=== PATIENT | female | born 1965 | race American Indian/Alaskan Native ===

== ENCOUNTER 2017-02-01 10:29 | Day surgery (SDC) | payer MEDICAID ==
[2017-02-01] MEDS ORDERED: NACL 0.9% 1000 ML 1,000 ML IV SCH (12:00)
[2017-02-01] MEDS ORDERED: XYLOCAINE MPF 2% ONE (12:00)
--- NOTE | 2017-02-01 12:09 | Anesthesia Day of Surgery ---
Anesthesia Day of Surgery - Day of Surgery Patient Examined: Yes Patient H&P Reviewed: Yes Patient is NPO: Yes
--- NOTE | 2017-02-01 12:12 | Anesthesia Consultation ---
Anesthesia Consult and Med Hx Date of service: 02/01/17 - Airway Anesthetic Teeth Evaluation: Poor ROM Head & Neck: Adequate Mental/Hyoid Distance: Adequate Mallampati Class: Class III Intubation Access Assessment: Possibly Difficult - Pulmonary Exam CTA: Yes - Cardiac Exam Cardiac Exam: RRR - Pre-Operative Health Status ASA Pre-Surgery Classification: ASA3 Proposed Anesthetic Plan: MAC - Pulmonary Hx Smoking: Yes (1-2 cigarrete per day x30 years) Hx Asthma: Yes (inhaler everyday, used this AM) - Cardiovascular System Hx Hypertension: No - Central Nervous System CVA: No (hx of brain aneurysm surgery in 2002) - Endocrine Hx Renal Disease: No Hx Cirrhosis: Yes (PT STATES WAS TOLD AT [facility] last month) Hx Non-Insulin Dependent Diabetes: No - Other Systems Hx Alcohol Use: Yes (stated quit, but used to 3 cans /day) - Additional Comments Anesthesia Medical History Comments: NAC
[2017-02-01] MEDS ORDERED: DIPRIVAN 10 MG/ML IV ONE ×2 (13:23)
--- NOTE | 2017-02-01 14:11 | Operative Report ---
Operative Report Operative Report: Date of procedure: 02/01/2017 Procedure: Colonoscopy to the sigmoid colon. Attending physician: Darin Salazar MD Hydrology Teacher: Darin Salazar MD Indication: Patient is a 51-year-old female who presents for screening colonoscopy. A colonoscopy service to evaluate patient for colorectal cancer screening.. Consent: Informed consent was obtained after advising the patient and family regarding nature of this procedure, its indications, potential benefits as well as possible complications including but not limited to bleeding perforation and adverse reaction to medication, infection as well as other cardiopulmonary complications. An informed written and verbal consent was then obtained after due opportunity was provided for questions and answers. Monitoring: Patient was monitored continuously with pulse oximetry and electrocardiographic recordings as well as blood pressure recordings. Vital signs remained stable throughout this procedure with no untoward events. Preoperative assessment: Patient was assessed immediately prior to this procedure for capacity to tolerate monitored anesthesia care and moderate sedation as well as general anesthesia. Patient's ASA classification is 2, Mallampati class is 2, Hyomental distance is 3. Instrument: Fujinon videocolonoscope Medications: Propofol given intravenously in divided doses. For details please refer to anesthesia records. Description of procedure: Patient was placed in the left lateral decubitus position after achieving sedation, a digital rectal examination was performed following which the colonoscope was introduced into the anal verge and advanced to the proximal sigmoid colon. The area appeared friable and tortuous. There appeared to be a mass lesion that is partially obstructing. There was a concern also for possible near colon perforation. The procedure was terminated. A CT scan is being obtained urgently to evaluate patient further. Findings: The colon was moderately tortuous. There appeared to be a possible colon mass in the sigmoid colon. Around this area also, there appeered to be a probable near perforation of the sigmoid colon(nontransmural). On the retroflex view at the anal verge, patient had internal hemorrhoids. Impression: Possible sigmoid colon mass. Suspicion of a nearly perforated colon in the sigmoid colon. Internal hemorrhoids. Plan: Stat CT scan of the abdomen and pelvis to assess patient. Additional measures will be taken depending on CT scan findings.
--- NOTE | 2017-02-01 14:12 | Discharge Summary ---
Short Stay Discharge Plan Activity: advance as tolerated Other Discharge Orders: CT abdomen pelvis w con Location: Determined By Patient
[2017-02-01 17:38] VITALS: BP 146/78
--- NOTE | 2017-02-01 17:55 | Cat Scan Report ---
FINAL REPORT EXAM: CT ABDOMEN PELVIS WO CON HISTORY: ? partial obstructing colon mass/colon perforation TECHNIQUE: CT of the abdomen and pelvis with oral contrast. No intravenous contrast administered. PRIORS: None. FINDINGS: No acute abnormality seen in the visualized portion of the lung bases. The liver is enlarged. There is a nodular contour. There is heterogeneity of attenuation liver parenchyma. Underlying mass lesions cannot be excluded. Spleen is normal in size and attenuation Kidneys demonstrate no evidence for hydronephrosis or nephrolithiasis. The adrenal glands are unremarkable. Abdominal aorta is normal in caliber There is a lytic bony lesion inferior left sacrum involving the adjacent iliac wing and extending through the sacroiliac joint with multiple calcifications present and soft tissue mass. Subtle sclerotic bony densities are identified. There is a small sclerotic focus within right ilium at the posterior acetabulum. Several small additional bilateral pelvic foci are seen within the ileum. Sclerotic densities noted vertebral body of T12 and there is a mixed attenuation lesion within T10 Noted are marked degenerative disc changes L4-5 and L5-S1 IMPRESSION: Enlarged liver. Nodular contour could reflect underlying cirrhosis. Some heterogeneity of attenuation seen on nonenhanced images. Underlying liver lesions or metastasis not excluded. Followup contrast CT if possible for this patient suggested. PET-CT could be performed for further evaluation Large lytic bony lesion left sacrum and adjacent ilium with soft tissue mass highly suspicious for neoplasm. Multiple small sclerotic bony foci noted within the sacrum and spine suspicious for metastasis Thickened appearance of the wall of the distal sigmoid and rectum. Could reflect colitis versus underlying mass low-attenuation 2.5 centimeter focus within the left adnexa possibly cystic. Could be further evaluated with ultrasound
== END 2017-02-01 10:30 | disposition home or self-care (01) ==
LOC: GIO 10:29
PROVIDERS: ATTEND Internal Medicine Gastroenterology
DX: Z12.11 Encounter for screening for malignant neoplasm of colon (principal); K63.89 Other specified diseases of intestine; K64.8 Other hemorrhoids; J45.909 Unspecified asthma, uncomplicated; I10 Essential (primary) hypertension; F17.210 Nicotine dependence, cigarettes, uncomplicated; F10.21 Alcohol dependence, in remission; Z79.899 Other long term (current) drug therapy; Z72.89 Other problems related to lifestyle; Z80.0 Family history of malignant neoplasm of digestive organs
CPT/HCPCS: 45378; 74176; J2704; J7030

== ENCOUNTER 2017-08-05 09:28 | Outpatient (CLI) | payer MEDICAID ==
--- NOTE | 2017-08-06 14:05 | PET Report ---
PET/CT:08/05/17 09:28:00 CLINICAL: Adenocarcinoma. RADIOPHARMACEUTICAL: 14.94mCi F18-FDG. COMPARISON: CT abdomen and pelvis without contrast PET/CT TECHNIQUE- Following intravenous injection of F-18 FDG and an approximately 60 minute uptake period, CT and PET images from the mid skull to the upper thighs were acquired with the patient in the fasted state. No contrast was administered. The CT protocol used for this PET CT study is designed for attenuation correction and anatomic localization of PET abnormalities. This personal protection specialist CT is not desired to produce and cannot replace, [id number] diagnostic CT scans with specific imaging protocols for different the body parts and indications. Plasma glucose at the time of this test: 93g/dl. The standardized uptake values (SUV) are normalized to patient body weight and indicate the highest activity concentration (SUV max) in a given disease site. FINDINGS: Brain--Physiologic FDG uptake in the visualized regions of the brain. Neck--Physiologic FDG uptake in mucosal structures. Chest--Physiologic FDG uptake in mediastinal blood pool and myocardium. Lungs--No abnormal uptake. No pulmonary nodule or mass. Pleura/pericardium--No abnormal uptake. Thoracic nodes--An FDG avid 9 x 8mm right paratracheal lymph node at the thoracic inlet with SUV 3.0. A 1.7 x 1.6 cm FDG avid subcarinal lymph node with SUV 4.9. Hepatobiliary--The liver is borderline small with too numerous to count FDG avid in non-FDG avid hypodense masses. The largest hypodense mass is in the right lobe and measures 5.0 x 5.0 cm and is non-FDG avid. Extensive multifocal abnormal FDG uptake with SUV 8.4. Surface nodularity of the liver. The bile ducts and gallbladder are normal. Perihepatic ascites. No varices are identified. Spleen--No abnormal uptake. Spleen is normal size. Pancreas--No abnormal uptake. Adrenal Glands--No abnormal uptake. Kidneys/Ureters/Bladder--No abnormal uptake. Abdominopelvic Nodes--A few small intraperitoneal and retroperitoneal FDG avid lymph nodes. A peripancreatic lymph node at the pancreatic head measures 1.2 x 1.3 cm with SUV 6.0. No para-aortic or paracaval lymphadenopathy. Bowel/Peritoneum/Mesentery--Several 1 cm FDG avid nodules of the anterior peritoneum. A right sided nodule image 327, series 1 with SUV 3.4. Pelvic organs--Bilateral adnexal masses with multifocal FDG uptake. The largest mass is on the left and measures approximately 6.6 x 4.9 cm SUV 5.6. A right ovary measures 4.4 x 3.1 cm with FDG uptake in SUV 6.0. Left pelvic sidewall mass with lytic destruction of the sacrum and left iliac bone with SUV 6.5. Bones/Soft Tissues--lytic destruction of the left sacrum and a portion of the left iliac bone with SUV 6.5. Numerous sclerotic vertebral body lesions. Most are non-FDG avid. The most prominent is at T12 and measures 1.4 cm with SUV 4.8. A lytic lesion of T10 and a pathologic compression fracture. Other findings: Large volume ascites. IMPRESSION-1. 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 The pattern of ascites and intraperitoneal carcinomatosis is consistent with this diagnosis. 2. Extensive skeletal metastasis including lytic destruction of the left sacrum and a portion of the left iliac bone. 3. Extensive hepatic metastasis. 4. Right paratracheal and subcarinal trevor metastasis in the chest. 5. No pulmonary metastasis.
== END 2017-08-05 09:29 | disposition home or self-care (01) ==
LOC: PET 09:28
PROVIDERS: ATTEND Internal Medicine Hematology & Oncology
DX: C79.51 Secondary malignant neoplasm of bone (principal); C78.7 Secondary malignant neoplasm of liver and intrahepatic bile duct; C78.39 Secondary malignant neoplasm of other respiratory organs; C79.31 Secondary malignant neoplasm of brain; N94.89 Other specified conditions associated with female genital organs and menstrual cycle; I10 Essential (primary) hypertension; Z79.899 Other long term (current) drug therapy
CPT/HCPCS: 78815; 82962; A9552